=== PATIENT | female | born 1990 | race African-American/Black ===

== ENCOUNTER 2016-07-02 20:52 | Emergency (ER) | payer OTHER ==
[~2016-07-02 20:52] MED LIST: CYCL10TA3 PO; PERC5TAB PO; TRAM37.5 PO
[2016-07-02 21:42] LABS: BASO % 0.5 % (0.0-1.0); EOS # 0.1 K/mm3 (0.0-0.50); EOS % 1.5 % (0.0-3.0); LARGE UNSTAINED CELL # 0.2 K/mm3 (0.0-0.4); LYMPH # 3.1 K/mm3 (1.5-6.5); LYMPH % 35.1 % (24.0-44.0); MEAN CORPUSCULAR HGB CONC 33.1 g/dl (32.0-36.5); MEAN CORPUSCULAR VOLUME 90.8 fl (80.0-96.0); MONO # 0.4 K/mm3 (0.0-0.8); MONO % 4.1 % (0.0-5.0); NEUTROPHILS % 56.8 % (36.0-66.0); PLATELET COUNT, AUTOMATED 332 k/mm3 (150-450); RED CELL DISTRIBUTION WIDTH 12.1 % (11.5-14.5); WHITE BLOOD COUNT 8.8 K/mm3 (4.0-10.0)
[2016-07-02 22:15] LABS: ANION GAP 8 MEQ/L (8-16); BLOOD UREA NITROGEN 8 MG/DL (7-18); CALCIUM LEVEL 8.6 MG/DL (8.5-10.1); CARBON DIOXIDE LEVEL 26 MEQ/L (21-32); CHLORIDE LEVEL 108 MEQ/L (98-107); CREATININE FOR GFR 0.66 MG/DL (0.55-1.02); GLOMERULAR FILTRATION RATE > 60.0 (>60); GLUCOSE, FASTING 81 MG/DL (70-105); HCG, SERUM QUANTITATIVE 15061 MIU/ML; POTASSIUM SERUM 3.8 MEQ/L (3.5-5.1); SODIUM LEVEL 142 MEQ/L (136-145)
--- NOTE | 2016-07-02 23:30 | REPUSA ---
Clinical history: bleeding. Findings: Real-time transabdominal and transvaginal ultrasound images of the pelvis were obtained. An anteverted uterus is noted, measuring 11.9 x 6.4 x 7.2 cm. The uterus demonstrates normal echotextur e and echogenicity. There is a single intrauterine gestation with a mean sac diameter of 19.1 mm. No pole or yolk sac is identified. The right ovary measures 3.4 x 2.7 x 3.2 cm. The left ovary jayleen sures 3.4 x 2.2 x 2.4 cm. No adnexal masses are seen. Color Doppler flow is seen within both ovaries. There is a small on of free fluid in the cul-de-sac. Impression: 1. Intrauterine gestational sac measuring 6 weeks 6 days by ultrasound measurements, without evidence of a pole or yolk sac. The findings suggest a blighted ovum. Follow-up with serial beta hCG se rum levels would be helpful for further evaluation. 2. Small amount of free fluid in the cul-de-sac.
--- NOTE | 2016-07-03 00:06 | EDDOCDS ---
Nurse's Notes [facility] Name: Mary Scott Age: 26 yrs Sex: Female : 1990 Arrival Date: 07/02/2016 Time: 20:52 Bed PR1 / Private MD: DERREK Mondragon Diagnosis: Other abnormal uterine and vaginal bleeding; related conditions, unspecified, first trimester Presentation: 07/02 20:59 Presenting complaint: Patient states: that she has had spotting for the past week and ms18 cramping today. Pt states that she informed her MEXICAN FOOD MACHINE TENDER about the spotting. Risk factors: The patient reports no loss of conciousness prior to arrival. This patient has not had a hysterectomy. This patient has not begun menopause. Adult Sepsis Screening: The patient does not have new or worsening altered mentation. Patient's respiratory rate is less than 22. Systolic blood pressure is greater than 100. Patient has a qSOFA score of 0- Negative Sepsis Screen. Suicide/Homicide risk assessment- the patient denies having any suicidal and/or homicidal ideations and does not present with any other emotional, behavioral or mental health complaints. 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 Transition of care: patient was not received from another setting of care. 20:59 Acuity: [place] Level 3 ms18 20:59 Method Of Arrival: Walkin/Carried/Asstd ms18 Triage Assessment: 21:01 General: Appears in no apparent distress, comfortable, Behavior is appropriate for age, ms18 cooperative. Pain: Location: pelvis Pain currently is 6 out of 10 on a pain scale. HIV screening NA for this visit Offered previously. Neurological: No deficits noted. Respiratory: No deficits noted. : Reports vaginal bleeding that is spotty. MEXICAN FOOD MACHINE TENDER: 21:01 LMP 04/2016 ms18 Historical: - Allergies: no known allergies; - Home Meds: 1. Vitamin Oral tab 1 tab once daily - PMHx: none; - PSHx: ; - Social history: Smoking status: Patient states was never smoker of tobacco. No barriers to communication noted, The patient speaks fluent Czech. - Family history: Not pertinent. - : The pt / caregiver states he / she is not on anticoagulants. Home medication list is obtained from the patient. - Exposure Risk Screening:: None identified. Screenin/24 00:04 Screening information is obtained from the patient. Fall risk: No risks identified. jmb Assistance ADL's: requires no assistance with activities of daily living. Abuse/DV Screen: The patient / caregiver reports he/she is: not in a situation that causes fear, pain or injury. Nutritional screening: No deficits noted. Advance Directives: Currently, there is no health care proxy. There is no active DNR order. There is no living will. There is no Power of Spring Forger. home support is adequate. Assessment: 00:04 General: Patient instructed on discharge instructions. Patient asked if there were any b questions regarding discharge, patient stated no. Patient signed discharge instructions. Patient discharged in stable condition. . : Last void was July 03, 2016. Vital Signs: 07/02 20:54 BP 133 / 63; Pulse 88; Resp 18; Temp 97.9; Pulse Ox 100% ; Weight 73.94 kg; Height 5 [facility] ft. 2 in. (157.48 cm); Pain 6/10; 07/03 00:04 BP 130 / 60; Pulse 74; Resp 18; Temp 97.8(O); Pulse Ox 98% on R/A; Pain 0/10; jmb 07/02 20:54 Body Mass Index 29.81 (73.94 kg, 157.48 cm) [facility] Vitals: 07/02 20:54 Log In Time: July 02, 2016 at 20:54. [facility] ED Course: 20:54 Patient visited by Katy Hay, Deputy Juvenile Officer. [facility] 20:54 Giancarlo [facility] is Private Physician. [facility] 20:54 Patient moved to Waiting [facility] 20:55 Patient visited by Katy Hay, Deputy Juvenile Officer. [facility] 20:55 Patient moved to Pre RCE jl 21:01 Triage Initiated ms18 21:35 BMP Sent. jmb 21:35 CBC with Diff Sent. jmb 21:35 Hcg, Serum Quantitative Sent. jmb 21:35 Type & Screen Sent. jmb 21:40 UA Sent. jmb 21:40 Urine Culture Sent. jmb 21:45 Patient moved to Triage 1 jmb 21:52 [facility]uniga [facility]C [facility] cc[facility] 21:52 Kareem Hinojosa DO is Attending Physician. cc10 22:04 Patient visited by Elijah Zuniga PA-C. cc10 22:05 Patient visited by Elijah Zuniga PA-C. cc10 22:21 Patient moved to TR1 jmb 22:33 Patient moved to [facility] dmg 22:33 [facility] Payment Agreement was scanned into [employer] and attached to record. gjb 23:06 Patient moved to TR1 dmg 23:50 US 1st trimester Returned. EDMS 23:54 Patient moved to PR1 jmb 23:56 Giancarlo [facility] is Referral Physician. cc10 07/03 00:04 The patient / caregiver is instructed regarding the plan of care and ED course. jmb 00:04 No IV's were initiated during this patient's visit. No procedures done that require [facility] assistance. Order Results: Lab Order: Type & Screen; SPEC'M 07/02/16 21:31 Test: BLOOD TYPE; Value: A POS; Status: F Test: AB SCREEN (INDIRECT RICHARD)GEL; Value: NEGATIVE; Status: F Lab Order: Hcg, Serum Quantitative; SPEC' 07/02/16 21:31 Test: HCG, SERUM QUANTITATIVE; Value: [id number]; Units: MIU/ML; Status: F Test Note: ; GESTATIONAL AGE APPROXIMATE HCG RANGE (MIU/ML) 0.2-1 WEEK 5-50 1-2 WEEKS 50-500 2-3 WEEKS 100-5,000 3-4 WEEKS 500-10,000 4-5 WEEKS 1,000-50,000 5-6 WEEKS 10,000-100,000 6-8 WEEKS 15,000-200,000 2-3 MONTHS 10,000-100,000 NON FEMALES LESS THAN 3.0 Patient samples may contain human heterophilic antibodies that could react with immunoassays to give falsely elevated or depressed results. This assay has been designed to minimize interference from heterophilic antibodies. Elevated hCG levels have also been associated with trophoblastic disease and nontrophoblastic neoplasms. The possibility of having these diseases should be considered before a diagnosis of is made. This test is not intended for use as a surrogate marker for aiding in the diagnosis or monitoring the treatment of cancer patients. [email or web address] ([employer]) methodology. Lab Order: CBC with Diff; SPEC'M 07/02/16 21:31 Test: WHITE BLOOD COUNT; Value: 8.8; Range: 4.0-10.0; Units: K/mm3; Status: F Test: RED BLOOD COUNT; Value: 4.40; Range: 4.00-5.40; Units: M/mm3; Status: F Test: HEMOGLOBIN; Value: 13.2; Range: 12.0-16.0; Units: g/dl; Status: F Test: HEMATOCRIT; Value: 39.9; Range: 36.0-47.0; Units: %; Status: F Test: MEAN CORPUSCULAR VOLUME; Value: 90.8; Range: 80.0-96.0; Units: fl; Status: F Test: MEAN CORPUSCULAR HEMOGLOBIN; Value: 30.0; Range: 27.0-33.0; Units: pg; Status: F Test: MEAN CORPUSCULAR HGB CONC; Value: 33.1; Range: 32.0-36.5; Units: g/dl; Status: F Test: RED CELL DISTRIBUTION WIDTH; Value: 12.1; Range: 11.5-14.5; Units: %; Status: F Test: PLATELET COUNT, AUTOMATED; Value: 332; Range: 150-450; Units: k/mm3; Status: F Test: NEUTROPHILS %; Value: 56.8; Range: 36.0-66.0; Units: %; Status: F Test: LYMPH %; Value: 35.1; Range: 24.0-44.0; Units: %; Status: F Test: MONO %; Value: 4.1; Range: 0.0-5.0; Units: %; Status: F Test: EOS %; Value: 1.5; Range: 0.0-3.0; Units: %; Status: F Test: BASO %; Value: 0.5; Range: 0.0-1.0; Units: %; Status: F Test: LARGE UNSTAINED CELL %; Value: 2.0; Range: 0.0-4.0; Units: %; Status: F Test: NEUTROPHILS #; Value: 5.0; Range: 1.8-7.7; Units: K/mm3; Status: F Test: LYMPH #; Value: 3.1; Range: 1.5-6.5; Units: K/mm3; Status: F Test: MONO #; Value: 0.4; Range: 0.0-0.8; Units: K/mm3; Status: F Test: EOS #; Value: 0.1; Range: 0.0-0.50; Units: K/mm3; Status: F Test: BASO #; Value: 0.0; Range: 0.0-0.2; Units: K/mm3; Status: F Test: LARGE UNSTAINED CELL #; Value: 0.2; Range: 0.0-0.4; Units: K/mm3; Status: F Lab Order: BMP; SPEC'M 07/02/16 21:31 Test: GLUCOSE, FASTING; Value: 81; Range: 70-105; Units: MG/DL; Status: F Test: BLOOD UREA NITROGEN; Value: 8; Range: 7-18; Units: MG/DL; Status: F Test: CREATININE FOR GFR; Value: 0.66; Range: 0.55-1.02; Units: MG/DL; Status: F Test: GLOMERULAR FILTRATION RATE; Value: > 60.0; Range: >60; Status: F Test: SODIUM LEVEL; Value: 142; Range: 136-145; Units: MEQ/L; Status: F Test: POTASSIUM SERUM; Value: 3.8; Range: 3.5-5.1; Units: MEQ/L; Status: F Test: CHLORIDE LEVEL; Value: 108; Range: 98-107; Abnormal: Above high normal; Units: MEQ/L; Status: F Test: CARBON DIOXIDE LEVEL; Value: 26; Range: 21-32; Units: MEQ/L; Status: F Test: ANION GAP; Value: 8; Range: 8-16; Units: MEQ/L; Status: F Test: CALCIUM LEVEL; Value: 8.6; Range: 8.5-10.1; Units: MG/DL; Status: F Test Note: ; Units are mL/min/1.73 m2 Chronic Kidney Disease Staging per NKF: Stage I & II GFR >=60 Normal to Mildly Decreased Stage III GFR 30-59 Moderately Decreased Stage IV GFR 15-29 Severely Decreased Stage V GFR <15 Very Little GFR Left ESRD GFR <15 on INBOUND SALES ADVISOR Lab Order: UA; SPEC'M 07/02/16 21:37 Test: APPEARANCE, URINE; Value: CLEAR; Range: CLEAR; Status: F Test: COLOR, URINE; Value: YELLOW; Range: YELLOW; Status: F Test: PH,URINE; Value: 7.0; Range: 5.0-9.0; Units: UNITS; Status: F Test: SPECIFIC GRAVITY URINE AUTO; Value: 1.016; Range: 1.002-1.035; Status: F Test: PROTEIN, URINE AUTO; Value: NEGATIVE; Range: NEGATIVE; Units: mg/dL; Status: F Test: GLUCOSE, URINE (UA) AUTO; Value: 1+; Range: NEGATIVE; Abnormal: Above high normal; Units: mg/dL; Status: F Test: KETONE, URINE AUTO; Value: NEGATIVE; Range: NEGATIVE; Units: mg/dL; Status: F Test: UROBILINOGEN, URINE AUTO; Value: 0.2; Range: 0.0-2.0; Units: mg/dL; Status: F Test: BILIRUBIN, URINE AUTO; Value: NEGATIVE; Range: NEGATIVE; Status: F Test: NITRITE, URINE AUTO; Value: NEGATIVE; Range: NEGATIVE; Status: F Test: LEUKOCYTE ESTERASE, URINE AUTO; Value: 1+; Range: NEGATIVE; Abnormal: Above high normal; Status: F Test: BLOOD, URINE BLOOD; Value: NEGATIVE; Range: NEGATIVE; Status: F Test: WBC, URINE AUTO; Value: 0; Range: 0-3; Units: /HPF; Status: F Test: RBC, URINE AUTO; Value: 1; Range: 0-3; Units: /HPF; Status: F Test: BACTERIA, URINE AUTO; Value: 1+; Range: NEGATIVE; Abnormal: Above high normal; Status: F Test: SQUAMOUS EPITHELIAL CELL UR AU; Value: 1; Range: 0-6; Units: /HPF; Status: F Test: HYALINE CAST, URINE AUTO; Value: 0; Range: 0-1; Units: /LPF; Status: F Radiology Order: US 1st trimester Test: US 1st trimester REASON FOR EXAMINATION: Bleeding; ; Clinical history: bleeding.; Findings: Real-time transabdominal and transvaginal ultrasound images of the pelvis were obtained. An; anteverted uterus is noted, measuring 11.9 x 6.4 x 7.2 cm. The uterus demonstrates normal echotextur; e and echogenicity. There is a single intrauterine gestation with a mean sac diameter of 19.1 mm. No; pole or yolk sac is identified. The right ovary measures 3.4 x 2.7 x 3.2 cm. The left ovary jayleen; sures 3.4 x 2.2 x 2.4 cm. No adnexal masses are seen. Color Doppler flow is seen within both ovaries.; There is a small on of free fluid in the cul-de-sac.; Impression:; 1. Intrauterine gestational sac measuring 6 weeks 6 days by ultrasound measurements, without evidence; of a pole or yolk sac. The findings suggest a blighted ovum. Follow-up with serial beta hCG se; rum levels would be helpful for further evaluation.; 2. Small amount of free fluid in the cul-de-sac.; ; Outcome: 07/02 23:57 Discharge ordered by Provider. cc10 07/03 00:04 Discharge Assessment: Patient awake, alert and oriented x 3. No cognitive and/or jmb functional deficits noted. Patient verbalized understanding of disposition instructions. Patient awake and alert. obeys commands, Oriented to person, place and time. Patient verbalized understanding of disposition instructions. Patient has no functional deficits. patient administered narcotics - no. The following High Risk Discharge criteria are identified: None. Discharged to home ambulatory. Condition: stable Condition: improved. Discharge instructions given to patient, Instructed on discharge instructions, follow up and referral plans. Demonstrated understanding of instructions, Pt was receptive of discharge instructions/ teaching. No special radiology studies were completed. Property sent home with patient. 00:06 Patient left the ED. hugo Signatures: Dispatcher [employer] Audrey Arriaga Joshua, RN RN jmb Coniski, Colin, PABeeC PA-C cc10 Katy Hay, Deputy Juvenile Officer Unit Jaja Giordano RN RN ms18 Rosie Chavira MTDD
--- NOTE | 2016-07-03 00:06 | EDDOCDS ---
Physician Documentation [facility] Name: Mary Scott Age: 26 yrs Sex: Female : 1990 Arrival Date: 07/02/2016 Time: 20:52 Bed PR Private MD: DERREK Mondragon Disposition: 07/02/16 23:57 Discharged to Home/Self Care. Impression: Other abnormal uterine and vaginal bleeding, related conditions, unspecified, first trimester. - Condition is Stable. - Discharge Instructions: First Trimester of , Threatened Miscarriage. - Medication Reconciliation form. - Follow up: Emergency Department; When: As needed. Follow up: DERREK Mondragon; When: 1 - 2 days; Reason: Recheck today's complaints, Continuance of care, recheck Beta HCG level. - Problem is an ongoing problem. - Symptoms are unchanged. Historical: - Allergies: no known allergies; - Home Meds: 1. Vitamin Oral tab 1 tab once daily - PMHx: none; - PSHx: ; - Social history: Smoking status: Patient states was never smoker of tobacco. No barriers to communication noted, The patient speaks fluent Guinean. - Family history: Not pertinent. - : The pt / caregiver states he / she is not on anticoagulants. Home medication list is obtained from the patient. - Exposure Risk Screening:: None identified. 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 2 in. (157.48 cm); Pain 6/10; 07/03 00:04 BP 130 / 60; Pulse 74; Resp 18; Temp 97.8(O); Pulse Ox 98% on R/A; Pain 0/10; jmb 07/02 20:54 Body Mass Index 29.81 (73.94 kg, 157.48 cm) jlm MDM: 07/02 21:20 Type & Screen Ordered. EDMS 21:21 Hcg, Serum Quantitative Ordered. EDMS 21:21 CBC with Diff Ordered. EDMS 21:21 BMP Ordered. EDMS 21:21 UA Ordered. EDMS 21:21 Urine Culture Ordered. EDMS 22:17 BMP Reviewed. cc10 22:17 UA Reviewed. cc10 22:17 Type & Screen Reviewed. cc10 22:17 Hcg, Serum Quantitative Reviewed. cc10 22:17 CBC with Diff Reviewed. cc10 22:23 US 1st trimester Ordered. EDMS 22:33 [facility] Payment Agreement was scanned into [employer] and attached to record. gjb 22:33 Financial registration complete. gjb 22:59 TRANSVAGINAL US Ordered. EDMS 22:59 DUPLEX SCAN LIMITED (DOPPLER) Ordered. EDMS Signatures: Dispatcher [employer] EDAlex Kruse,RN RN Elijah Velasquez, PA-C PA-C ccJaja Polanco RN RN ms18 Rosie Chavira The chart was reviewed and I authenticate all verbal orders and agree with the evaluation and treatment provided.Attachments: 22:33 [facility] Payment Agreement gj MTDD
--- NOTE | 2016-07-05 01:07 | EDDOCDS ---
Nurse's Notes [facility] Name: Mary Scott Age: 26 yrs Sex: Female : 1990 Arrival Date: 07/02/2016 Time: 20:52 Bed PR1 / Private MD: DERREK Mondragon Diagnosis: Other abnormal uterine and vaginal bleeding; related conditions, unspecified, first trimester Presentation: 07/02 20:59 Presenting complaint: Patient states: that she has had spotting for the past week and ms18 cramping today. Pt states that she informed her LICENSED OPTICAL DISPENSER about the spotting. Risk factors: The patient reports no loss of conciousness prior to arrival. This patient has not had a hysterectomy. This patient has not begun menopause. Adult Sepsis Screening: The patient does not have new or worsening altered mentation. Patient's respiratory rate is less than 22. Systolic blood pressure is greater than 100. Patient has a qSOFA score of 0- Negative Sepsis Screen. Suicide/Homicide risk assessment- the patient denies having any suicidal and/or homicidal ideations and does not present with any other emotional, behavioral or mental health complaints. 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 Transition of care: patient was not received from another setting of care. 20:59 Acuity: [place] Level 3 ms18 20:59 Method Of Arrival: Walkin/Carried/Asstd ms18 Triage Assessment: 21:01 General: Appears in no apparent distress, comfortable, Behavior is appropriate for age, ms18 cooperative. Pain: Location: pelvis Pain currently is 6 out of 10 on a pain scale. HIV screening NA for this visit Offered previously. Neurological: No deficits noted. Respiratory: No deficits noted. : Reports vaginal bleeding that is spotty. LICENSED OPTICAL DISPENSER: 21:01 LMP 04/2016 ms18 Historical: - Allergies: no known allergies; - Home Meds: 1. Vitamin Oral tab 1 tab once daily - PMHx: none; - PSHx: ; - Social history: Smoking status: Patient states was never smoker of tobacco. No barriers to communication noted, The patient speaks fluent Divehi. - Family history: Not pertinent. - : The pt / caregiver states he / she is not on anticoagulants. Home medication list is obtained from the patient. - Exposure Risk Screening:: None identified. Screenin/24 00:04 Screening information is obtained from the patient. Fall risk: No risks identified. jmb Assistance ADL's: requires no assistance with activities of daily living. Abuse/DV Screen: The patient / caregiver reports he/she is: not in a situation that causes fear, pain or injury. Nutritional screening: No deficits noted. Advance Directives: Currently, there is no health care proxy. There is no active DNR order. There is no living will. There is no Power of Product Technology Scientist. home support is adequate. Assessment: 00:04 General: Patient instructed on discharge instructions. Patient asked if there were any b questions regarding discharge, patient stated no. Patient signed discharge instructions. Patient discharged in stable condition. . : Last void was July 03, 2016. Vital Signs: 07/02 20:54 BP 133 / 63; Pulse 88; Resp 18; Temp 97.9; Pulse Ox 100% ; Weight 73.94 kg; Height 5 [facility] ft. 2 in. (157.48 cm); Pain 6/10; 07/03 00:04 BP 130 / 60; Pulse 74; Resp 18; Temp 97.8(O); Pulse Ox 98% on R/A; Pain 0/10; jmb 07/02 20:54 Body Mass Index 29.81 (73.94 kg, 157.48 cm) [facility] Vitals: 07/02 20:54 Log In Time: July 02, 2016 at 20:54. [facility] ED Course: 20:54 Patient visited by Katy Hay, Patient Assessment Coordinator. [facility] 20:54 Giancarlo [facility] is Private Physician. [facility] 20:54 Patient moved to Waiting [facility] 20:55 Patient visited by Katy Hay, Patient Assessment Coordinator. [facility] 20:55 Patient moved to Pre RCE jl 21:01 Triage Initiated ms18 21:35 BMP Sent. jmb 21:35 CBC with Diff Sent. jmb 21:35 Hcg, Serum Quantitative Sent. jmb 21:35 Type & Screen Sent. jmb 21:40 UA Sent. jmb 21:40 Urine Culture Sent. jmb 21:45 Patient moved to Triage 1 jmb 21:52 [facility] cc[facility] 21:52 Kraeem Hinojosa DO is Attending Physician. cc10 22:04 Patient visited by Elijah Zuniga PA-C. cc10 22:05 Patient visited by Elijah Zuniga PA-C. cc10 22:21 Patient moved to TR1 jmb 22:33 Patient moved to Ultrasound dmg 22:33 [facility] Payment Agreement was scanned into [employer] and attached to record. gjb 23:06 Patient moved to TR1 dmg 23:50 US 1st trimester Returned. EDMS 23:54 Patient moved to PR1 jmb 23:56 Giancarlo [facility] is Referral Physician. cc10 07/03 00:04 The patient / caregiver is instructed regarding the plan of care and ED course. jmb 00:04 No IV's were initiated during this patient's visit. No procedures done that require jmb assistance. 12:04 T-Sheet-- Draft Copy was scanned into [employer] and attached to record. gb Order Results: Lab Order: Urine Culture; [facility] 07/02/16 21:37 Test: URINE CULTURE; Value: <EXTERNAL COMMENT eCWMed> FULL REPORT IN LAB NOTES (eCW and Medent).; Status: F Test: URINE CULTURE; Value: URINE CULTURE RESULT NO GROWTH CLINICAL SIGNIFICANCE 1 ORGANISM; Status: F Lab Order: Type & Screen; [facility] 07/02/16 21:31 Test: BLOOD TYPE; Value: A POS; Status: F Test: AB SCREEN (INDIRECT RICHARD)GEL; Value: NEGATIVE; Status: F Lab Order: Hcg, Serum Quantitative; [facility]' 07/02/16 21:31 Test: HCG, SERUM QUANTITATIVE; Value: [id number]; Units: MIU/ML; Status: F Test Note: ; GESTATIONAL AGE APPROXIMATE HCG RANGE (MIU/ML) 0.2-1 WEEK 5-50 1-2 WEEKS 50-500 2-3 WEEKS 100-5,000 3-4 WEEKS 500-10,000 4-5 WEEKS 1,000-50,000 5-6 WEEKS 10,000-100,000 6-8 WEEKS 15,000-200,000 2-3 MONTHS 10,000-100,000 NON FEMALES LESS THAN 3.0 Patient samples may contain human heterophilic antibodies that could react with immunoassays to give falsely elevated or depressed results. This assay has been designed to minimize interference from heterophilic antibodies. Elevated hCG levels have also been associated with trophoblastic disease and nontrophoblastic neoplasms. The possibility of having these diseases should be considered before a diagnosis of is made. This test is not intended for use as a surrogate marker for aiding in the diagnosis or monitoring the treatment of cancer patients. Siemens 7fgame methodology. Lab Order: CBC with Diff; SPEC'M 07/02/16 21:31 Test: WHITE BLOOD COUNT; Value: 8.8; Range: 4.0-10.0; Units: K/mm3; Status: F Test: RED BLOOD COUNT; Value: 4.40; Range: 4.00-5.40; Units: M/mm3; Status: F Test: HEMOGLOBIN; Value: 13.2; Range: 12.0-16.0; Units: g/dl; Status: F Test: HEMATOCRIT; Value: 39.9; Range: 36.0-47.0; Units: %; Status: F Test: MEAN CORPUSCULAR VOLUME; Value: 90.8; Range: 80.0-96.0; Units: fl; Status: F Test: MEAN CORPUSCULAR HEMOGLOBIN; Value: 30.0; Range: 27.0-33.0; Units: pg; Status: F Test: MEAN CORPUSCULAR HGB CONC; Value: 33.1; Range: 32.0-36.5; Units: g/dl; Status: F Test: RED CELL DISTRIBUTION WIDTH; Value: 12.1; Range: 11.5-14.5; Units: %; Status: F Test: PLATELET COUNT, AUTOMATED; Value: 332; Range: 150-450; Units: k/mm3; Status: F Test: NEUTROPHILS %; Value: 56.8; Range: 36.0-66.0; Units: %; Status: F Test: LYMPH %; Value: 35.1; Range: 24.0-44.0; Units: %; Status: F Test: MONO %; Value: 4.1; Range: 0.0-5.0; Units: %; Status: F Test: EOS %; Value: 1.5; Range: 0.0-3.0; Units: %; Status: F Test: BASO %; Value: 0.5; Range: 0.0-1.0; Units: %; Status: F Test: LARGE UNSTAINED CELL %; Value: 2.0; Range: 0.0-4.0; Units: %; Status: F Test: NEUTROPHILS #; Value: 5.0; Range: 1.8-7.7; Units: K/mm3; Status: F Test: LYMPH #; Value: 3.1; Range: 1.5-6.5; Units: K/mm3; Status: F Test: MONO #; Value: 0.4; Range: 0.0-0.8; Units: K/mm3; Status: F Test: EOS #; Value: 0.1; Range: 0.0-0.50; Units: K/mm3; Status: F Test: BASO #; Value: 0.0; Range: 0.0-0.2; Units: K/mm3; Status: F Test: LARGE UNSTAINED CELL #; Value: 0.2; Range: 0.0-0.4; Units: K/mm3; Status: F Lab Order: [facility]; SPEC'M 07/02/16 21:31 Test: GLUCOSE, FASTING; Value: 81; Range: 70-105; Units: MG/DL; Status: F Test: BLOOD UREA NITROGEN; Value: 8; Range: 7-18; Units: MG/DL; Status: F Test: CREATININE FOR GFR; Value: 0.66; Range: 0.55-1.02; Units: MG/DL; Status: F Test: GLOMERULAR FILTRATION RATE; Value: > 60.0; Range: >60; Status: F Test: SODIUM LEVEL; Value: 142; Range: 136-145; Units: MEQ/L; Status: F Test: POTASSIUM SERUM; Value: 3.8; Range: 3.5-5.1; Units: MEQ/L; Status: F Test: CHLORIDE LEVEL; Value: 108; Range: 98-107; Abnormal: Above high normal; Units: MEQ/L; Status: F Test: CARBON DIOXIDE LEVEL; Value: 26; Range: 21-32; Units: MEQ/L; Status: F Test: ANION GAP; Value: 8; Range: 8-16; Units: MEQ/L; Status: F Test: CALCIUM LEVEL; Value: 8.6; Range: 8.5-10.1; Units: MG/DL; Status: F Test Note: ; Units are mL/min/1.73 m2 Chronic Kidney Disease Staging per NKF: Stage I & II GFR >=60 Normal to Mildly Decreased Stage III GFR 30-59 Moderately Decreased Stage IV GFR 15-29 Severely Decreased Stage V GFR <15 Very Little GFR Left ESRD GFR <15 on APPLICATIONS ENGINEER MANUFACTURING Lab Order: UA; SPEC'M 07/02/16 21:37 Test: APPEARANCE, URINE; Value: CLEAR; Range: CLEAR; Status: F Test: COLOR, URINE; Value: YELLOW; Range: YELLOW; Status: F Test: PH,URINE; Value: 7.0; Range: 5.0-9.0; Units: UNITS; Status: F Test: SPECIFIC GRAVITY URINE AUTO; Value: 1.016; Range: 1.002-1.035; Status: F Test: PROTEIN, URINE AUTO; Value: NEGATIVE; Range: NEGATIVE; Units: mg/dL; Status: F Test: GLUCOSE, URINE (UA) AUTO; Value: 1+; Range: NEGATIVE; Abnormal: Above high normal; Units: mg/dL; Status: F Test: KETONE, URINE AUTO; Value: NEGATIVE; Range: NEGATIVE; Units: mg/dL; Status: F Test: UROBILINOGEN, URINE AUTO; Value: 0.2; Range: 0.0-2.0; Units: mg/dL; Status: F Test: BILIRUBIN, URINE AUTO; Value: NEGATIVE; Range: NEGATIVE; Status: F Test: NITRITE, URINE AUTO; Value: NEGATIVE; Range: NEGATIVE; Status: F Test: LEUKOCYTE ESTERASE, URINE AUTO; Value: 1+; Range: NEGATIVE; Abnormal: Above high normal; Status: F Test: BLOOD, URINE BLOOD; Value: NEGATIVE; Range: NEGATIVE; Status: F Test: WBC, URINE AUTO; Value: 0; Range: 0-3; Units: /HPF; Status: F Test: RBC, URINE AUTO; Value: 1; Range: 0-3; Units: /HPF; Status: F Test: BACTERIA, URINE AUTO; Value: 1+; Range: NEGATIVE; Abnormal: Above high normal; Status: F Test: SQUAMOUS EPITHELIAL CELL UR AU; Value: 1; Range: 0-6; Units: /HPF; Status: F Test: HYALINE CAST, URINE AUTO; Value: 0; Range: 0-1; Units: /LPF; Status: F Radiology Order: US 1st trimester Test: US 1st trimester REASON FOR EXAMINATION: Bleeding; ; Clinical history: bleeding.; Findings: Real-time transabdominal and transvaginal ultrasound images of the pelvis were obtained. An; anteverted uterus is noted, measuring 11.9 x 6.4 x 7.2 cm. The uterus demonstrates normal echotextur; e and echogenicity. There is a single intrauterine gestation with a mean sac diameter of 19.1 mm. No; pole or yolk sac is identified. The right ovary measures 3.4 x 2.7 x 3.2 cm. The left ovary jayleen; sures 3.4 x 2.2 x 2.4 cm. No adnexal masses are seen. Color Doppler flow is seen within both ovaries.; There is a small on of free fluid in the cul-de-sac.; Impression:; 1. Intrauterine gestational sac measuring 6 weeks 6 days by ultrasound measurements, without evidence; of a pole or yolk sac. The findings suggest a blighted ovum. Follow-up with serial beta hCG se; rum levels would be helpful for further evaluation.; 2. Small amount of free fluid in the cul-de-sac.; ; Outcome: 07/02 23:57 Discharge ordered by Provider. cc10 07/03 00:04 Discharge Assessment: Patient awake, alert and oriented x 3. No cognitive and/or jmb functional deficits noted. Patient verbalized understanding of disposition instructions. Patient awake and alert. obeys commands, Oriented to person, place and time. Patient verbalized understanding of disposition instructions. Patient has no functional deficits. patient administered narcotics - no. The following High Risk Discharge criteria are identified: None. Discharged to home ambulatory. Condition: stable Condition: improved. Discharge instructions given to patient, Instructed on discharge instructions, follow up and referral plans. Demonstrated understanding of instructions, Pt was receptive of discharge instructions/ teaching. No special radiology studies were completed. Property sent home with patient. 00:06 Patient left the ED. hugo Signatures: Dispatcher [employer] EDAudrey Larson Gloria, Reg Reg Alex Denny RN RN Elijah Velasquez PAAnamaria PA-C cc10 Katy Hay, Patient Assessment Coordinator Unit Jaja Giordano,LIBBY RN ms18 Rosie Chavira Chart Complete MTDD
--- NOTE | 2016-07-05 01:07 | EDDOCDS ---
Physician Documentation [facility] Name: Mary Scott Age: 26 yrs Sex: Female : 1990 Arrival Date: 07/02/2016 Time: 20:52 Bed PR Private MD: DERREK Mondragon Disposition: 07/02/16 23:57 Discharged to Home/Self Care. Impression: Other abnormal uterine and vaginal bleeding, related conditions, unspecified, first trimester. - Condition is Stable. - Discharge Instructions: First Trimester of , Threatened Miscarriage. - Medication Reconciliation form. - Follow up: Emergency Department; When: As needed. Follow up: DERREK Mondragon; When: 1 - 2 days; Reason: Recheck today's complaints, Continuance of care, recheck Beta HCG level. - Problem is an ongoing problem. - Symptoms are unchanged. Historical: - Allergies: no known allergies; - Home Meds: 1. Vitamin Oral tab 1 tab once daily - PMHx: none; - PSHx: ; - Social history: Smoking status: Patient states was never smoker of tobacco. No barriers to communication noted, The patient speaks fluent Liberian. - Family history: Not pertinent. - : The pt / caregiver states he / she is not on anticoagulants. Home medication list is obtained from the patient. - Exposure Risk Screening:: None identified. 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 2 in. (157.48 cm); Pain 6/10; 07/03 00:04 BP 130 / 60; Pulse 74; Resp 18; Temp 97.8(O); Pulse Ox 98% on R/A; Pain 0/10; jmb 07/02 20:54 Body Mass Index 29.81 (73.94 kg, 157.48 cm) jlm MDM: 07/02 21:20 Type & Screen Ordered. EDMS 21:21 Hcg, Serum Quantitative Ordered. EDMS 21:21 CBC with Diff Ordered. EDMS 21:21 BMP Ordered. EDMS 21:21 UA Ordered. EDMS 21:21 Urine Culture Ordered. EDMS 22:17 BMP Reviewed. cc10 22:17 UA Reviewed. cc10 22:17 Type & Screen Reviewed. cc10 22:17 Hcg, Serum Quantitative Reviewed. cc10 22:17 CBC with Diff Reviewed. cc10 22:23 US 1st trimester Ordered. EDMS 22:33 [facility] Payment Agreement was scanned into [employer] and attached to record. gjb 22:33 Financial registration complete. gjb 22:59 TRANSVAGINAL US Ordered. EDMS 22:59 DUPLEX SCAN LIMITED (DOPPLER) Ordered. EDMS 07/03 12:04 T-Sheet-- Draft Copy was scanned into [employer] and attached to record. gb Signatures: Dispatcher [employer] EDCT Nery Perdomo, Reg Reg gb Alex Weinstein,RN RN Elijah Velasquez, PA-C PABeeC ccJaja Polanco RN RN ms18 Rosie Chavira gracia The chart was reviewed and I authenticate all verbal orders and agree with the evaluation and treatment provided.Attachments: 07/02 22:33 [facility] Payment Agreement gjb 07/03 12:04 T-Sheet-- Draft Copy gb Chart Complete MTDD
--- NOTE | 2016-07-05 01:07 | EDDOCDS ---
Physician Documentation [facility] Name: Mary Scott Age: 26 yrs Sex: Female : 1990 Arrival Date: 07/02/2016 Time: 20:52 Bed PR Private MD: DERREK Mondragon Disposition: 07/02/16 23:57 Discharged to Home/Self Care. Impression: Other abnormal uterine and vaginal bleeding, related conditions, unspecified, first trimester. - Condition is Stable. - Discharge Instructions: First Trimester of , Threatened Miscarriage. - Medication Reconciliation form. - Follow up: Emergency Department; When: As needed. Follow up: DERREK Mondragon; When: 1 - 2 days; Reason: Recheck today's complaints, Continuance of care, recheck Beta HCG level. - Problem is an ongoing problem. - Symptoms are unchanged. Historical: - Allergies: no known allergies; - Home Meds: 1. Vitamin Oral tab 1 tab once daily - PMHx: none; - PSHx: ; - Social history: Smoking status: Patient states was never smoker of tobacco. No barriers to communication noted, The patient speaks fluent Iraqi. - Family history: Not pertinent. - : The pt / caregiver states he / she is not on anticoagulants. Home medication list is obtained from the patient. - Exposure Risk Screening:: None identified. 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 2 in. (157.48 cm); Pain 6/10; 07/03 00:04 BP 130 / 60; Pulse 74; Resp 18; Temp 97.8(O); Pulse Ox 98% on R/A; Pain 0/10; jmb 07/02 20:54 Body Mass Index 29.81 (73.94 kg, 157.48 cm) jlm MDM: 07/02 21:20 Type & Screen Ordered. EDMS 21:21 Hcg, Serum Quantitative Ordered. EDMS 21:21 CBC with Diff Ordered. EDMS 21:21 BMP Ordered. EDMS 21:21 UA Ordered. EDMS 21:21 Urine Culture Ordered. EDMS 22:17 BMP Reviewed. cc10 22:17 UA Reviewed. cc10 22:17 Type & Screen Reviewed. cc10 22:17 Hcg, Serum Quantitative Reviewed. cc10 22:17 CBC with Diff Reviewed. cc10 22:23 US 1st trimester Ordered. EDMS 22:33 [facility] Payment Agreement was scanned into [email or web address] and attached to record. gjb 22:33 Financial registration complete. gjb 22:59 TRANSVAGINAL US Ordered. EDMS 22:59 DUPLEX SCAN LIMITED (DOPPLER) Ordered. EDMS 07/03 12:04 T-Sheet-- Draft Copy was scanned into [email or web address] and attached to record. gb Signatures: Dispatcher [employer] EDKS Nery Perdomo, Reg Reg gb Alex Weinstein,RN RN Elijah Velasquez, PA-C PABeeC ccJaja Polanco RN RN ms18 Rosie Chavira gracia The chart was reviewed and I authenticate all verbal orders and agree with the evaluation and treatment provided.Attachments: 07/02 22:33 [facility] Payment Agreement gjb 07/03 12:04 T-Sheet-- Draft Copy gb Chart Complete MTDD
== END 2016-07-03 00:06 | disposition home or self-care (01) ==
LOC: M ED 20:52
DX: O20.0 Threatened abortion (principal); Z79.899 Other long term (current) drug therapy; Z3A.01 Less than 8 weeks gestation of pregnancy

== ENCOUNTER 2016-11-23 13:23 | Emergency (ER) | payer OTHER ==
[~2016-11-23] VITALS: Ht 157.5 cm; Wt 81.4 kg
[2016-11-23] MEDS ORDERED: ONDANSETRON 4MG/2ML VIAL (J2405) IV ONE (15:00)
[2016-11-23] MEDS ORDERED: NS 1,000 ML IV ONE (15:00)
[2016-11-23] MEDS ORDERED: PANTOPRAZOLE 40MG INJ (PROTONIX) (C9113) IV ONE (15:00)
[2016-11-23] MEDS ORDERED: FAMOTIDINE IV BAG 20 MG in APPROPRIATE DILUENT 1 EA IV ONE (15:00)
[2016-11-23 15:50] LABS: BASO % 0.5 % (0.0-1.0); EOS # 0.1 K/mm3 (0.0-0.50); EOS % 1.3 % (0.0-3.0); LARGE UNSTAINED CELL # 0.2 K/mm3 (0.0-0.4); LARGE UNSTAINED CELL % 1.8 % (0.0-4.0); LYMPH # 2.3 K/mm3 (1.5-6.5); LYMPH % 22.2 % (24.0-44.0); MEAN CORPUSCULAR HEMOGLOBIN 30.4 pg (27.0-33.0); MEAN CORPUSCULAR HGB CONC 32.7 g/dl (32.0-36.5); MEAN CORPUSCULAR VOLUME 93.1 fl (80.0-96.0); MONO # 0.4 K/mm3 (0.0-0.8); MONO % 3.9 % (0.0-5.0); NEUTROPHILS # 6.8 K/mm3 (1.8-7.7); NEUTROPHILS % 70.2 % (36.0-66.0); PLATELET COUNT, AUTOMATED 369 k/mm3 (150-450); RED CELL DISTRIBUTION WIDTH 12.5 % (11.5-14.5); WHITE BLOOD COUNT 9.6 K/mm3 (4.0-10.0)
[2016-11-23 16:02] LABS: CONTROL LINE HCG INT CTR LINE PRESENT
[2016-11-23 16:10] LABS: ALBUMIN/GLOBULIN RATIO 1.05 (1.00-1.93); ALKALINE PHOSPHATASE 161 U/L (45-117); ALT/SGPT 25 U/L (12-78); AMYLASE 59 U/L (25-115); ANION GAP 5 MEQ/L (8-16); AST/SGOT 16 U/L (15-37); BILIRUBIN,DIRECT < 0.1 MG/DL (0.0-0.2); BILIRUBIN,TOTAL 0.3 MG/DL (0.2-1.0); BLOOD UREA NITROGEN 8 MG/DL (7-18); CALCIUM LEVEL 9.1 MG/DL (8.5-10.1); CARBON DIOXIDE LEVEL 27 MEQ/L (21-32); CHLORIDE LEVEL 105 MEQ/L (98-107); GLOMERULAR FILTRATION RATE > 60.0 (>60); GLUCOSE, FASTING 91 MG/DL (70-105); POTASSIUM SERUM 4.2 MEQ/L (3.5-5.1); SODIUM LEVEL 137 MEQ/L (136-145); TOTAL PROTEIN 7.8 GM/DL (6.4-8.2)
[2016-11-23] MEDS ORDERED: ZOFR4TAB3 PO (16:29)
[2016-11-23 17:01] VITALS: BP 102/63
--- NOTE | 2016-11-23 17:46 | REP ---
ABDOMEN, FLAT AND UPRIGHT, PA CHEST, THREE VIEWS: HISTORY: Abdominal pain. A small amount of air is present in small and large intestine. There are no air fluid levels or dilated loops of intestine. There is no pneumoperitoneum. The lungs are clear. IMPRESSION: Nonspecific bowel gas pattern. Signed by Carrington Valdez MD 12/12/2016 09:40 A
== END 2016-11-23 17:04 | disposition home or self-care (01) ==
LOC: M ED 14:20
DX: K29.70 Gastritis, unspecified, without bleeding (principal); R11.2 Nausea with vomiting, unspecified
CPT/HCPCS: 36415; 74022; 80048; 80076; 82150; 83690; 84703; 85025; 96374; 96375; 99283; C9113; J2405

== ENCOUNTER 2017-03-27 21:01 | Emergency (ER) | payer OTHER ==
[~2017-03-27] VITALS: Ht 157.5 cm; Wt 83.0 kg
[~2017-03-27 21:01] MED LIST changes: +ZOFR4TAB3 PO
[2017-03-27] MEDS ORDERED: MUCU400T8 PO (21:10)
[2017-03-27] MEDS ORDERED: ONDANSETRON 4 MG TAB (S0181) PO ONE (22:45)
[2017-03-27] MEDS ORDERED: ZOFR4TAB3 PO (22:51)
[2017-03-27 23:13] VITALS: BP 112/53
== END 2017-03-27 23:18 | disposition home or self-care (01) ==
LOC: M ED 21:01
DX: K52.9 Noninfective gastroenteritis and colitis, unspecified (principal)